=== PATIENT | female | born 1960 | race African-American/Black ===

== ENCOUNTER 2018-07-28 06:28 | Day surgery (SDC) | payer BC ==
[2018-07-28] MEDS ORDERED: Ringers Lactate 1,000 ML IV ONE (06:59)
[2018-07-28] MEDS ORDERED: FENTANYL CITR 100 MCG/2 ML ONE (07:01)
[2018-07-28] MEDS ORDERED: PROPOFOL 200 MG/20 ML VIAL IV ONE (07:02)
[2018-07-28] MEDS ORDERED: MIDAZOLAM HCL 2 MG/2 ML INJ ONE (07:02)
[2018-07-28] MEDS ORDERED: LIDOCAINE 1% MPF 2 ML AMPULE ONE (07:03)
[2018-07-28] MEDS ORDERED: ONDANSETRON 4 MG/2 ML VIAL ONE (07:03)
[2018-07-28] MEDS ORDERED: NA CHLORIDE 0.9% 1,000 ML ONE ×2 (07:12→08:50)
[2018-07-28] MEDS ORDERED: LIDOCAINE 1.5% W/EPI AMP 5 ML ONE ×3 (07:28→08:49)
[2018-07-28] MEDS ORDERED: IBUPROFEN 200 MG TAB PO ONE (09:32)
--- NOTE | 2018-07-28 16:42 | OP ---
Date of Procedure: 07/28/2018 Surgeon: Shiela Morales MD Cherry Picker Operator: None. Preoperative Diagnoses: Postmenopausal bleeding and endometrial polyps. Postoperative Diagnoses: Endometrial polyps x5 and postmenopausal bleeding. Anesthesia: General. Had to be converted from MAC to general because the patient was unable to tole rate the procedure. Complications: None. Drains: None. Specimens: Polyps and endometrial curettings that were scant. Condition: The patient's condition is stable. Indications For Procedure: The patient is a 58-year-old female with postmenopausal bleeding. Transv aginal ultrasound was performed, suspicious for endometrial polyps. She was consented for direct vis ualization, polypectomy, and D and C. Consented and brought to the hospital. Description Of Procedure: After informed consent was verified, she was taken back to the OR, placed in supine fashion on the operating table. After MAC was given, she was placed in dorsal lithotomy po sition. Pelvic exam was performed. Uterus anteflexed about 10- to 12-week size, mobile. No adnexal masses were palpable. Speculum was placed to expose the cervix, and the patient was unable to cassidy ate this. Gave her some more deeper sedation, still unable to tolerate, so she was converted to gene ral with an LMA, then was able to perform the procedure without any problems. A speculum was placed to expose the cervix. A prep x3 with Betadine was done. Anterior lip grasped with 2 Allis clamps. [place] was changed to a Jean. Diagnostic SlimLine hysteroscope was inserted through the cervical ca nal into the uterine cavity. There was a large polyp mcfp down the cervical canal and as this zaid yp was followed, it was attached to the anterior wall, the top half of the endometrial canal. The po lyp was about 5 cm long, about a centimeter and half wide, smooth, mostly unremarkable. Then, there were 4 other polyps, 2 on the left lateral wall, 1 in the proximal and other in the distal part of th e canal, then fundal and the right cornual. All these were vascular, but pedunculated polyps excepti ng the 1 on the left proximal wall. The plan was to resect the polyps. After removing the diagnostic scope, changed to an operative hysteroscope with a channel, scissors wa s placed through this, and the base of the largest polyp was cut. The polyp was detached. Then, radha t on to remove the pedunculated polyp from the right cornual end. Then, the fundal polyp was cut and detached as well. I went back in as the large polyp was occluding the internal os and I was able to keep the distention very well, so just left the polyp in place while I performed the other 2 polypec tomies. The base of the polyp on the left side was completely detachable as the pedicles were very l oose, not thick. Both were completely detached. After all the polyps were detached, scope was remov ed. Wily's forceps was used to collect all 5 polyps, and they were removed. Endometrial curettin gs were performed. Sample was small. All the instruments were removed. The patient was cleaned up. Instrument, needle, and sponge counts were correct at the end of the case. The patient tolerated t he procedure well. She was recovered from anesthesia in the OR and taken to PACU in stable condition . She has an appointment to see us back in 1 week. JUS Voice ID: [id number] Report ID: [id number]
== END 2018-07-28 10:00 | disposition home or self-care (01) ==
LOC: OR 06:28
PROVIDERS: ATTEND Obstetrics & Gynecology
PROC: 0UDB7ZX Extraction of Endometrium, Via Natural or Artificial Opening, Diagnostic (ICD-10-PCS; 2018-07-28)
PROC: 0UB98ZX Excision of Uterus, Via Natural or Artificial Opening Endoscopic, Diagnostic (ICD-10-PCS; principal; 2018-07-28 07:30)
DX: N84.0 Polyp of corpus uteri (principal); N95.0 Postmenopausal bleeding; D25.0 Submucous leiomyoma of uterus; N95.1 Menopausal and female climacteric states; I10 Essential (primary) hypertension; Z79.899 Other long term (current) drug therapy
CPT/HCPCS: 88305; J2001; J2250; J2405; J2704; J3010; J7030

== ENCOUNTER → 2018-08-30 | Day surgery (SDC) | payer BC ==
--- NOTE | 2018-08-30 12:18 | RAD REPORT ---
EXAM DESCRIPTION: Ultrasound-guided vacuum assisted right breast core biopsy CLINICAL HISTORY: Breast mass N63.0 COMPARISON: 3D SCR NAVARRO BILAT W/CAD dated 08/03/2018; Follow Up Breast Axilla Comp dated 08/24/2018 FINDINGS: Informed consent was obtained and time-out was performed. The patient's right breast was prepped and draped in the usual sterile fashion. 1% lidocaine was used for local anesthetic purposes. Utilizing aseptic technique and ultrasound guidance, a 12 gauge vacuum assisted core biopsy device wa s used to obtain 3 core specimens through the mass of interest. A post biopsy clip was then placed. All collected material was sent for cytology. Patient tolerated procedure well. IMPRESSION: Successful ultrasound guided vacuum assisted right breast mass biopsy.
== END ==
LOC: DS 10:56
PROVIDERS: ATTEND Clinical Nurse Specialist Women's Health
DX: C50.911 Malignant neoplasm of unspecified site of right female breast (principal); Z17.0 Estrogen receptor positive status [ER+]
CPT/HCPCS: 19083; 88305

== ENCOUNTER 2018-09-20 07:30 | Day surgery (SDC) | payer BC ==
--- NOTE | 2018-09-15 08:53 | RAD REPORT ---
EXAM DESCRIPTION: RAD - Chest Pa And Lat (2 Views) - 09/15/2018 8:48 am CLINICAL HISTORY: preop Chest pain. COMPARISON: No comparisons FINDINGS: The lungs are clear. The heart is normal in size. No displaced fractures. IMPRESSION: No acute or concerning finding suspected.
[2018-09-15 10:42] LABS: Absolute Lymphocytes (CBC) 3.2 K/uL (0.7-4.9); Absolute Monocytes 0.5 K/uL (0.1-1.3); Absolute Neutrophil 2.1 K/uL (1.8-8.0); Basophils % 0.7 % (0-1.3); Eosinophils % 1.5 % (0-4.4); Hematocrit 39.9 % (36.0-45.0); Lymphocytes % 54.5 % (15.3-44.8); MPV 9.4 fL (7.6-11.3); Monocytes % 7.7 % (3.3-12.3); RBC Red Blood Cell Count 4.34 M/uL (3.86-4.86)
--- NOTE | 2018-09-15 10:52 | EKG ---
Test Date: 2018-09-15 Test Time: 08:34:49 Education Administrator: VON MEASUREMENT RESULTS: Intervals: Rate: 67 [place]: 192 QRSD: 82 QT: 378 QTc: 399 [place]: P: 49 [place]: 192 QRS: 22 T: 7 INTERPRETIVE STATEMENTS: Normal sinus rhythm Possible Left atrial enlargement Left ventricular hypertrophy Abnormal ECG No previous ECG available for comparison Electronically Signed On 09-15-18 10:51:45 CDT by Dima Irwin
[2018-09-15 11:04] LABS: BUN Blood Urea Nitrogen 10 mg/dL (7-18); Bicarbonate 31 mmol/L (21-32); Glucose Level 112 mg/dL (74-106); Potassium 3.9 mmol/L (3.5-5.1); Sodium Level 144 mmol/L (136-145)
[2018-09-20] MEDS ORDERED: Ringers Lactate 1,000 ML IV ONE ×2 (08:18→12:28)
[2018-09-20] MEDS ORDERED: CEFAZOLIN/SWI 1gm 1 GM/10 ML SYR ONE (08:18)
[2018-09-20] MEDS ORDERED: FENTANYL CITR 100 MCG/2 ML ONE ×2 (08:19→11:16)
[2018-09-20] MEDS ORDERED: LIDOCAINE 2% MPF 5 ML VIAL ONE (08:19)
[2018-09-20] MEDS ORDERED: MIDAZOLAM HCL 2 MG/2 ML INJ ONE (08:19)
[2018-09-20] MEDS ORDERED: PROPOFOL 200 MG/20 ML VIAL IV ONE (08:19)
[2018-09-20] MEDS ORDERED: ONDANSETRON 4 MG/2 ML VIAL ONE ×2 (08:20→13:57)
[2018-09-20] MEDS ORDERED: METHYLENE BLUE 0.5% 10 ML AMP ONE (08:40)
[2018-09-20] MEDS ORDERED: ROCURONIUM 50 MG/5 ML VIAL IV ONE (09:23)
--- NOTE | 2018-09-20 09:27 | RAD REPORT ---
EXAM DESCRIPTION: US - Brst,Preop NL Wire Init w/Guid - 09/20/2018 9:08 am CLINICAL HISTORY: Biopsy confirmed right breast carcinoma pending surgical lumpectomy COMPARISON: MRI September 09, ultrasound August 30 and August 24 FINDINGS: Patient presents for ultrasound-guided needle localization of unknown upper right breast m ass. Prior imaging was reviewed. Consent for the localization procedure was obtained as part of the s urgical consent. Preliminary imaging again identified a hypoechoic mass 11 o'clock right breast. Size and location cor respond to the prior imaging. Along the lateral margin there is reactive parenchymal stranding now pr esent possibly related to malignancy or related to the ultrasound-guided core biopsy. Anterior right breast was prepped and draped in the usual sterile fashion. From a medial approach, sk in and deeper tissues were anesthetized with 1% lidocaine. Under direct sonographic visualization a 5 centimeter long [place] mammo lock needle was advanced. Tip of the needle penetrated the superior daniel in of the mass. The inner wire was set. Patient was transferred back to same-day surgery for pending lumpectomy. IMPRESSION: Ultrasound-guided needle localization right breast mass as detailed.
--- NOTE | 2018-09-20 11:43 | RAD REPORT ---
EXAM DESCRIPTION: US - Surgical Specimen - 09/20/2018 11:05 am CLINICAL HISTORY: Right breast lumpectomy following needle localization COMPARISON: Ultrasound needle localization September 20 FINDINGS: Sonographic evaluation of the specimen demonstrated the small spiculated hypoechoic mass t o be present within the specimen. No significant or suspicious unexpected finding. IMPRESSION: Specimen ultrasound shows the mass lesion to be contained within the specimen.
[2018-09-20] MEDS ORDERED: GLYCOPYRROLATE 0.2 MG/ML SYR ONE ×2 (12:06)
[2018-09-20] MEDS ORDERED: KETOROLAC 30 MG/ML INJ ONE (12:15)
[2018-09-20] MEDS ORDERED: HYDROMORPHONE HCL 1 MG/ML INJ ONE (12:56)
--- NOTE | 2018-09-20 21:54 | OP ---
Date of Procedure: 09/20/2018 Surgeon: Ronny Patel MD [facility] Director: JANA Maya. Preoperative Diagnosis: Right breast cancer. Postoperative Diagnosis: Right breast cancer. The sentinel node biopsy was positive. Procedure Performed: Needle localization of right breast lumpectomy, sentinel node biopsy and axilla ry dissection. Estimated Blood Loss: Minimal. Specimen: Lumpectomy. Margins were free. Millry node, they were positive for metastatic disease and axillary dissection. Findings: As above. Anesthesia: General. Complications: None. Drains: VILMA #10 flat. Disposition: The patient tolerated the procedure in stable condition and taken to Recovery in good g eneral condition. Procedure In Detail: The patient was brought to the OR and placed in supine position. General anest hesia was began and then the nipple-areolar complex prepped and draped in the usual sterile fashion. Methylene blue injected around the nipple-areolar complex. Breast massaged. Then the patient was p repped and draped in usual sterile fashion. Then, sentinel node counter device used to localize the sentinel node in the standard fashion. All numbers were recorded on the medical records and a 3 cm i ncision was made in the right axilla. Deep to the subcutaneous tissue a blue lymph node was identifi ed. Vascular control was obtained and the lymph node was excised, appeared to be little fleshy, froze n section revealed evidence of metastatic disease. At the time this was being determined a lumpectom y was performed with ellipse of skin approximately 6 x 3 cm at the upper part of the right breast, knight bcutaneous tissue divided. Flaps created all the way around. The tip of the needle excised in one l arge lumpectomy specimen which was sent to Radiology and confirmation obtained that cancer was in the specimen and then the lumpectomy wound was irrigated. Bleeding controlled with cautery. A 3-0 chrome plater savanah used to approximate subcutaneous tissue and closed skin and then the axillary dissection proceede d. A 3 cm incision was extended to 6, subcutaneous tissue divided, deep to subcutaneous tissue the a xillary vein was identified. Lower thoracic neurovascular bundle and the thoracodorsal neurovascular bundle was localized and all lymph nodes in this area were dissected with sharp and blunt dissection. Vascular clips were utilized. 2-0 silks were utilized as needed and large amount of ly mphatic and fatty tissue was excised. There were some obvious palpable large lymph nodes present in the specimen. Then the entire wound was irrigated. Bleeding controlled with cautery. There was no evidence of bleeding or nerve injury appreciated and then the Bryson-Cowart #10 flat placed, secured with 3-0 nylon in the axilla. Then the wound closed with 3-0 chromic, subcutaneous tissue and skin. Sterile dressing was applied. The patient was awakened and taken to Recovery in good general condit ion. Discharge Note: The patient will go to Day Surgery and home when stable. Disposition: Home. Condition: Stable. Discharge Instructions: Resume home medications and diet. Activity as tolerated. No heavy lifting. Keep dressing clean, dry, sponge bathe only. Follow up in my office, call for appointment . Tylenol No. 3 one tablet p.o. q.4 p.r.n. pain, Keflex 500 mg p.o. q.6. Record VILMA output q.12, bring record to office . /ROCHELLE Voice ID: [id number] Report ID: [id number]
== END 2018-09-20 15:35 | disposition home or self-care (01) ==
LOC: OR 07:30
PROVIDERS: ATTEND Surgery
PROC: 07T50ZZ Resection of Right Axillary Lymphatic, Open Approach (ICD-10-PCS; 2018-09-20)
PROC: 0HBT0ZX Excision of Right Breast, Open Approach, Diagnostic (ICD-10-PCS; principal; 2018-09-20 10:00)
DX: C50.911 Malignant neoplasm of unspecified site of right female breast (principal); C77.3 Secondary and unspecified malignant neoplasm of axilla and upper limb lymph nodes; Z17.0 Estrogen receptor positive status [ER+]; I10 Essential (primary) hypertension; Z79.899 Other long term (current) drug therapy
CPT/HCPCS: 19285; 36415; 71046; 76098; 80048; 85025; 88305; 88307; 88331; 93005; J0690; J1170; J2250; J2405; J2704; J3010

== ENCOUNTER → 2023-07-15 | Emergency (ER) | payer OTHER ==
[~2023-07-15] MED LIST: INSULIN REGULAR (HUMAN) 100 UNIT/ML ONE; NA CHLORIDE 0.9% 2,000 ML ONE
--- OUTSIDE RECORDS SUMMARY | 2023-07-15 10:02 | XMS REPORT | Continuity of Care Document ---
Author Name Unknown Address [address] [place] [address] thconnect Address [address] [facility] [address] [place] [address] Care Team Providers Care Admissions Dean Name Role Phone [email or web address] Attending Clinician Unavaila ble [email or web address] Admitting Clinician Unavaila ble Encounters Start Date/Time End Date/Time Encounter Type Admission Type Attending Clinicians Care Facility Care Department Encounter ID Source 2023-02-28 00:00:00 2023-02-28 00:00:00 Outpatient [email or web address] [email or web address] PRIV PRIV [id number] [facility] [place] 2023-02-27 00:00:00 2023-02-27 00:00:00 Outpatient [email or web address] PRIV PRIV [id number] [facility] [place]
[2023-07-15 11:17] LABS: Absolute Lymphocytes (CBC) 2.5 K/uL (0.7-4.9); Absolute Monocytes 0.4 K/uL (0.1-1.3); Basophils % 0.7 % (0-1.3); Eosinophils % 0.4 % (0-4.4); Hematocrit 42.4 % (36.0-45.0); Hemoglobin 14.6 g/dL (12.0-15.0); Lymphocytes % 42.4 % (15.3-44.8); MCHC 34.5 g/dL (32.0-36.0); MCV 90.1 fL (80-100); MPV 9.3 fL (7.6-11.3); Monocytes % 6.6 % (3.3-12.3); Neutrophils % 49.9 % (41.7-73.7); Nucleated Red Blood Cells % 0.1 % (0-0); Platelets 222 thou/uL (152-406); RBC Red Blood Cell Count 4.71 M/uL (3.86-4.86); Red Cell Distribution Width 13.2 % (12.1-15.2)
[2023-07-15 11:43] LABS: Albumin 3.6 g/dL (3.4-5.0); Albumin/Globulin Ratio 0.8 (1.1-1.8); Anion Gap 10.9 mEq/L (5.0-15.0); Bilirubin Total 0.8 mg/dL (0.2-1.0); Globulin 4.5 g/dL (2.3-3.5); Potassium 3.9 mEq/L (3.5-5.1); Protein, Total 8.1 g/dL (6.4-8.2); Troponin High Sensitivity 7.3 pg/mL (<58.9)
[2023-07-15 11:44] LABS: Specific Gravity > 1.030 (1.005-1.030); Urine Bacteria None Seen /HPF (<20); Urine Bilirubin NEGATIVE (Negative); Urine Blood Negative (Negative); Urine Clarity Clear (Clear); Urine Color Light-Yellow (Yellow); Urine Glucose 4+ (Over) (Negative); Urine Protein NEGATIVE (Negative); Urine RBC <5 /HPF (None Seen); Urine Urobilinogen 1+ (Normal); Urine Yeast (Budding) Trace /HPF (None Seen); Urine Yeast with Hyphae Trace /HPF (None Seen); Urine pH 6.5 (5.0-7.0)
--- NOTE | 2023-07-15 14:41 | EDPHYS ---
Physician Documentation [facility] Name: Gabriela Moore Age: 63 yrs Sex: Female : 1960 Arrival Date: 07/15/2023 Time: 09:58 Bed 17 Private MD: Krystal Patel ED Physician Rajesh Gaines HPI: 07/14 14:09 This 63 yrs old Black Female presents to ER via Ambulatory with complaints of High rt Blood Sugar. 14:09 Patient presents to the ED with reported hyperglycemia to about 550. She was reportedly rt prediabetic previously, was told to come to the ED due to outpatient labs that showed blood sugar was that elevated. Denies any symptoms at this time other than feeling slightly dizzy. Denies other acute complaints, symptoms are moderate in severity, no other aggravating elevating factors.. Historical: - Allergies: 10:25 No Known Allergies; ll1 - PMHx: 10:25 Diabetes mellitus; Hypertensive disorder; ll1 - Immunization history:: Adult Immunizations up to date. - Social history:: Smoking status: Patient denies any tobacco usage or history of. - Family history:: pertinent for not pertinent. ROS: 14:09 Constitutional: Negative for fever, chills, and weight loss, Cardiovascular: Negative rt for chest pain, palpitations, and edema, Respiratory: Negative for shortness of breath, cough, wheezing, and pleuritic chest pain, Abdomen/GI: Negative for abdominal pain, nausea, vomiting, diarrhea, and constipation, MS/Extremity: Negative for injury and deformity, Skin: Negative for injury, rash, and discoloration, Psych: Negative for depression, anxiety, suicide ideation, homicidal ideation, and hallucinations, 14:09 Neuro: Positive for near syncope, Negative for altered mental status, Exam: 14:09 Constitutional: This is a well developed, well nourished patient who is awake, alert, rt and in no acute distress. Chest/axilla: Normal chest wall appearance and motion. Nontender with no deformity. No lesions are appreciated. Cardiovascular: Regular rate and rhythm with a normal S1 and S2. No gallops, murmurs, or rubs. Normal PMI, no JVD. No pulse deficits. Respiratory: Lungs have equal breath sounds bilaterally, clear to auscultation and percussion. No rales, rhonchi or wheezes noted. No increased work of breathing, no retractions or nasal flaring. Abdomen/GI: Soft, non-tender, with normal bowel sounds. No distension or tympany. No guarding or rebound. No evidence of tenderness throughout. Skin: Warm, dry with normal turgor. Normal color with no rashes, no lesions, and no evidence of cellulitis. MS/ Extremity: Pulses equal, no cyanosis. Neurovascular intact. Full, normal range of motion. Neuro: Awake and alert, GCS 15, oriented to person, place, time, and situation. Cranial nerves II-XII grossly intact. Motor strength 5/5 in all extremities. Sensory grossly intact. Cerebellar exam normal. Normal gait. Psych: Awake, alert, with orientation to person, place and time. Behavior, mood, and affect are within normal limits. 14:09 ENT: Dry mucous membranes. 14:09 ECG was reviewed by the Attending Physician. Vital Signs: 10:25 BP 189 / 99; Pulse 70; Resp 18; Temp 97.5; Pulse Ox 96% on R/A; Weight 94.35 kg; Height ll1 5 ft. 5 in. ; Pain 0/10; 10:25 BP 170 / 90; Pulse 77; Resp 18; Pulse Ox 99% on R/A; rs5 11:01 BP 160 / 93; Pulse 75; Resp 18; Pulse Ox 98% on R/A; rs5 14:02 BP 166 / 94; Pulse 70; Resp 17; Pulse Ox 98% on R/A; rs5 10:25 Body Mass Index 34.61 (94.35 kg, 165.1 cm) ll1 10:25 Pain Scale: Adult ll1 MDM: 10:17 Patient medically screened. rt 14:56 Differential diagnosis: Hyperglycemia, DKA, infection. Data reviewed: vital signs, rt nurses notes, lab test result(s), EKG. Consideration of Admission/Observation Escalation of care including admission/observation considered. Symptoms, glucose significantly improved with treatment in the ED, no evidence of complications associate with hyperglycemia, stable for outpatient care, will start patient on metformin.. Care significantly affected by the following chronic conditions: Diabetes. Counseling: I had a detailed discussion with the patient and/or guardian regarding the historical points, exam findings, and any diagnostic results supporting the discharge/admit diagnosis, lab results, the need for outpatient follow up, to return to the emergency department if symptoms worsen or persist or if there are any questions or concerns that arise at home. 07/14 10:29 Order name: CBC with Diff; Complete Time: 11:55 rt 07/14 10:29 Order name: CMP; Complete Time: 11:55 rt 07/14 10:29 Order name: Troponin High Sensitivity; Complete Time: 11:55 rt 07/14 10:29 Order name: UAM; Complete Time: 11:55 rt 07/14 12:21 Order name: Glucose, Ancillary Testing; Complete Time: 12:24 EDMS 07/14 13:58 Order name: Glucose, Ancillary Testing; Complete Time: 14:02 EDMS 07/14 14:43 Order name: Glucose, Ancillary Testing EDMS 07/14 10:29 Order name: EKG; Complete Time: 10:29 rt 07/14 10:29 Order name: EKG - Nurse/Tech; Complete Time: 10:36 rt 07/14 11:56 Order name: Accucheck; Complete Time: 12:21 rt 07/14 13:12 Order name: Accucheck: after second liter; Complete Time: 14:53 rt EC:09 Rate is 67 beats/min. Rhythm is regular, Normal Sinus Rhythm with No ectopy. QRS [place] rt is Normal. MA interval is normal. QRS interval is normal. QT interval is normal. No Q waves. T waves are Normal. No ST changes noted. Interpreted by me. Administered Medications: 11:00 Drug: NS 0.9% IV 2000 ml IV at 1 bolus Per protocol; 1000 mL bolus Route: IV; Rate: 1 rs5 bolus; Site: left hand; 11:15 Follow up: Response: No adverse reaction rs5 12:20 Follow up: Response: No adverse reaction; IV Status: Completed infusion rs5 14:01 Drug: Insulin Regular Human Sub-Q 10 units Sub-Q once {Co-Signature: tl4 (Homar Velasco RN).} Route: Sub-Q; Site: left lower abdomen; 14:20 Follow up: Response: No adverse reaction rs5 Disposition Summary: 07/15/23 14:41 Discharge Ordered Notes: Location: Home rt Problem: new rt Symptoms: have improved rt Condition: Stable rt Diagnosis - Hyperglycemia, unspecified rt Followup: rt - With: Krystal Patel, DO - When: 2 - 3 days - Reason: Discharge Instructions: - Discharge Summary Sheet rt - Hyperglycemia rt Forms: - Medication Reconciliation Form rt - Thank You Letter rt - Antibiotic Education rt - Prescription Opioid Use rt - Patient Portal Instructions rt - Leadership Thank You Letter rt Prescriptions: - Metformin 500 mg Oral tablet - take 1 tablet ORAL route once daily for 7 days Then take 1 tablet with morning rt meals AND evening meals; 60 tablet; Refills: 0, Product Selection Permitted Signatures: Dispatcher [employer] Baylee Byrnes RN RN Suzan Clark RN RN ll1 Rajesh Gaines MD MD rt Adarsh Hilario RN RN rs5 Homar Velasco RN tl4
--- NOTE | 2023-07-15 14:41 | ER ---
Nurse's Notes [facility] Name: Gabriela Moore Age: 63 yrs Sex: Female : 1960 Arrival Date: 07/15/2023 Time: 09:58 Bed 17 Private MD: Krystal Patel Diagnosis: Hyperglycemia, unspecified Presentation: 07/14 10:25 Chief complaint: Patient states: Feeling weird for 2 weeks. Went to PCP, sugar was ll1 above 500 so she was sent in for evaluation. Coronavirus screen: Vaccine status: Patient reports receiving the 2nd dose of the covid vaccine. Client denies travel out of the [place] in the last 14 days. At this time, the client does not indicate any symptoms associated with coronavirus-19. Ebola Screen: Patient denies travel to an Ebola-affected area in the 21 days before illness onset. Initial Sepsis Screen: Does the patient meet any 2 criteria? No. Patient's initial sepsis screen is negative. Does the patient have a suspected source of infection? No. Patient's initial sepsis screen is negative. Risk Assessment: Do you want to hurt yourself or someone else? Patient reports no desire to harm self or others. Onset of symptoms was July 03, 2023. 10:25 Method Of Arrival: Ambulatory ll1 10:25 Acuity: DARRICK 2 ll1 Triage Assessment: 10:27 General: Appears uncomfortable, Behavior is calm, cooperative, appropriate for age. ll1 General: Reports fatigue for. Pain: Denies pain. Neuro: Reports a syncopal episode weakness. Historical: - Allergies: 10:25 No Known Allergies; ll1 - PMHx: 10:25 Diabetes mellitus; Hypertensive disorder; ll1 - Immunization history:: Adult Immunizations up to date. - Social history:: Smoking status: Patient denies any tobacco usage or history of. - Family history:: pertinent for not pertinent. Screenin:17 [facility] ED Fall Risk Assessment (Adult) History of falling in the last 3 months, rs5 including since admission No falls in past 3 months (0 pts) Confusion or Disorientation No (0 pts) Intoxicated or Sedated No (0 pts) Impaired Gait No (0 pts) Mobility Assist Device Used No (0 pt) Altered Elimination No (0 pt) Score/Fall Risk Level 0 - 2 = Low Risk Oriented to surroundings, Maintained a safe environment. 10:17 Abuse screen: Denies threats or abuse. Nutritional screening: No deficits noted. rs5 Tuberculosis screening: No symptoms or risk factors identified. Assessment: 10:16 General: Appears in no apparent distress. uncomfortable, Behavior is calm, cooperative. rs5 10:16 Pain: Denies pain. Neuro: Level of Consciousness is awake, alert, obeys commands, rs5 Oriented to person, place, time, situation. Cardiovascular: Patient's skin is warm and dry. Rhythm is regular. Respiratory: Airway is patent Respiratory effort is even, unlabored, Respiratory pattern is regular, symmetrical. GI: Abdomen is round non-distended, Abd is soft and non tender X 4 quads. : No signs and/or symptoms were reported regarding the genitourinary system. EENT: No signs and/or symptoms were reported regarding the EENT system. Derm: Skin is intact, Skin is pink, warm \T\ dry. Musculoskeletal: Range of motion: intact in all extremities, Reports weakness in generalized for past two weeks. 10:20 Reassessment: Provider notified of elevated blood pressure readings. rs5 11:20 Reassessment: Patient and/or family updated on plan of care and expected duration. Pain rs5 level reassessed. Patient is alert, oriented x 3, equal unlabored respirations, skin warm/dry/pink. Patient denies pain at this time. 12:21 Reassessment: Blood sugar results 405, provider notified of elevated blood sugar rs5 readings . 12:25 Reassessment: No changes from previously documented assessment. rs5 13:37 Reassessment: Patient and/or family updated on plan of care and expected duration. Pain rs5 level reassessed. Patient is alert, oriented x 3, equal unlabored respirations, skin warm/dry/pink. Patient states feeling better. Patient states symptoms have improved. 13:58 Reassessment: Blood sugar results 417, provider notified of elevated blood sugar rs5 readings. 14:20 Reassessment: No changes from previously documented assessment. rs5 14:43 Reassessment: Blood sugar results 342, provider notified of elevated blood sugar rs5 readings . Vital Signs: 10:25 BP 189 / 99; Pulse 70; Resp 18; Temp 97.5; Pulse Ox 96% on R/A; Weight 94.35 kg; Height ll1 5 ft. 5 in. ; Pain 0/10; 10:25 BP 170 / 90; Pulse 77; Resp 18; Pulse Ox 99% on R/A; rs5 11:01 BP 160 / 93; Pulse 75; Resp 18; Pulse Ox 98% on R/A; rs5 14:02 BP 166 / 94; Pulse 70; Resp 17; Pulse Ox 98% on R/A; rs5 10:25 Body Mass Index 34.61 (94.35 kg, 165.1 cm) ll1 10:25 Pain Scale: Adult ll1 ED Course: 10:00 Patient arrived in ED. mr 10:00 Krystal Patel DO is Private Physician. mr 10:01 Rajesh Gaines MD is Attending Physician. rt 10:15 Arm band placed on Patient placed in an exam room, on a stretcher. ll1 10:17 Patient has correct armband on for positive identification. Placed in gown. Bed in low rs5 position. Call light in reach. Side rails up X2. 10:17 No provider procedures requiring assistance completed. rs5 10:22 Inserted saline lock: 24 gauge in left hand, using aseptic technique. rs5 10:27 Triage completed. ll1 10:40 Adarsh Hilario, WILLIS is Primary Nurse. rs5 14:31 BS 342. aw1 14:40 Krystal Patel DO is Referral Physician. rt 14:40 IV discontinued, intact, bleeding controlled, No redness/swelling at site. Pressure rs5 dressing applied. Administered Medications: 11:00 Drug: NS 0.9% IV 2000 ml IV at 1 bolus Per protocol; 1000 mL bolus Route: IV; Rate: 1 rs5 bolus; Site: left hand; 11:15 Follow up: Response: No adverse reaction rs5 12:20 Follow up: Response: No adverse reaction; IV Status: Completed infusion rs5 14:01 Drug: Insulin Regular Human Sub-Q 10 units Sub-Q once {Co-Signature: tl4 (Homar Velasco RN).} Route: Sub-Q; Site: left lower abdomen; 14:20 Follow up: Response: No adverse reaction rs5 Medication: 14:40 VIS not applicable for this client. rs5 Outcome: 14:41 Discharge ordered by . rt 14:45 Discharged to home ambulatory, rs5 14:45 Condition: stable 14:45 Discharge instructions given to patient, family, Instructed on discharge instructions, follow up and referral plans. medication usage, Demonstrated understanding of instructions, follow-up care, medications, Prescriptions given X 1, 14:47 Patient left the ED. rs5 Signatures: Kalyani Samuel, Reg Reg mr Baylee Colmenares RN RN iw Suzan Clark RN RN ll1 Rajesh Gaines MD MD rt Adarsh Hilario RN RN rs5 Holly Doyle aw1 Homar Velasco RN tl4 Corrections: (The following items were deleted from the chart) 19:00 14:59 Patient left the ED. iw rs5
[2023-07-15 15:07] VITALS: BP 189/99; TEMP 97.5; O2SAT 96
== END ==
LOC: ER 09:58
DX: E11.65 Type 2 diabetes mellitus with hyperglycemia (principal); I10 Essential (primary) hypertension
CPT/HCPCS: 85025; 81001; 36415; 82947 ×3; 84484; 80053; J1815; J7030; 93005